=== PATIENT | male | born 1955 | race Caucasian/White ===

== ENCOUNTER 2016-12-01 02:11 | Emergency (ER) | payer BC ==
--- NOTE | 2016-12-04 13:14 | ER ---
ADMIT: 12/01/2016 RM/LOC: ER [facility] MR#: [id number] [address] [facility] [address] [place], [place] [id number] ALEXX FOX [address] [facility] [place], [place] [id number] Emergency Room Report SEX: M AGE: 61 : 1955 DATE: 12/01/2016 HISTORY OF PRESENT ILLNESS: The patient is a 61-year-old male with a past medical history of hypertension and gout and chronic neck pain, who is pending for fusion of the C-spine in December, came to the ER with chief complaint of tciyx-gr-ckupyoj neck pain. The patient denies any new trauma. The patient denies any new numbness, tingling, or weakness. The patient states the pain is in both midline and right and left paraspinal area and is very similar to previous pain in quality, but in quantities more severe. PHYSICAL EXAMINATION: GENERAL: The patient is in hryhdepi-fj-tkewjy distress. HEAD AND NECK: Showed the patient has spasm of the paraspinal on the cervical area. No obvious midline tenderness or step-offs. CHEST: Clear. HEART: Normal heart sounds. ABDOMEN: Soft. NEUROLOGIC: There is no focal motor deficit or focal sensory deficits. The rest of the physical examination and neural exam is negative and noncontributory. Pain was controlled. The patient does not have any new focal deficit and the patient can be discharged as an outpatient. The patient was advised to contact the primary care neurosurgeon in the morning and discussed the case with. The patient acknowledged he understood and the patient was discharged to home. Return precautions, prescription for 15 Percocets and follow up with the primary doctor. Ben Shi MD/ rohan JOB #: [id number] CC: Ben Shi MD, Attending Physician Gutierrez Toribio MD, Family Physician
== END 2016-12-01 04:00 | disposition home or self-care (01) ==
LOC: ER 02:11
DX: G89.29 Other chronic pain (principal); M54.2 Cervicalgia; E78.5 Hyperlipidemia, unspecified; I10 Essential (primary) hypertension